=== PATIENT | male | born 1985 | race Hispanic/Latino ===

== ENCOUNTER 2021-04-12 16:13 | Emergency (ER) | payer SELFPAY ==
[~2021-04-12] VITALS: Ht 175.3 cm; Wt 74.8 kg
[2021-04-12] MEDS ORDERED: HYDROCODONE/APAP 5MG-325MG TAB PO ONE (17:00)
[2021-04-12] MEDS ORDERED: DEXAMETHASONE SOD PHOS 10 MG/1 ML VIAL IM ONE (17:00)
[2021-04-12] MEDS ORDERED: KETOROLAC TROME10 MG PO (17:53)
[2021-04-12] MEDS ORDERED: METHOCARBAMOL750 MG PO (17:53)
[2021-04-12] MEDS ORDERED: PREDNISONE50 MG PO (17:53)
[2021-04-12 21:11] VITALS: BP 128/80
== END 2021-04-12 20:05 | disposition home or self-care (01) ==
LOC: ER 16:28
DX: M54.12 Radiculopathy, cervical region (principal); F17.210 Nicotine dependence, cigarettes, uncomplicated
CPT/HCPCS: 72050; 72125; 99283; J1100